=== PATIENT | male | born 1980 | race Caucasian/White ===

== ENCOUNTER 2020-04-22 09:14 | Emergency (ER) | payer OTHER, SELFPAY ==
--- NOTE | ~2020-04-22 | XR_ITS ---
EXAMINATION: XR chest 1V portable EXAM DATE: 04/22/2020 10:02 INDICATION: Shortness of breath. TECHNIQUE: Portable AP frontal chest x-ray was obtained. There is no prior study for comparison. FINDINGS: Mild hyperinflation. The lungs are clear. There are no pleural effusions. The cardiomedia stinal silhouette is within normal limits. There is no pneumothorax suspected. The bones and soft t issues are unremarkable. IMPRESSION: Mild hyperinflation. Reviewed, dictated and finalized at location B. 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
[2020-04-22 09:28] VITALS: BP 157/103; PULSE 106; RESP 13; TEMP 36.4; O2SAT 98
[2020-04-22 09:45] LABS: Basophils Percent Auto 0.5 % (0.2-1.2); Eosinophils Absolute Auto 0.1 K/mm3 (0-0.3); Eosinophils Percent Auto 0.9 % (0-4.4); Hematocrit 58.4 % (42.0-52.0); Hemoglobin 20.9 g/dL (14.0-18.0); Immature Granulocyte Absolute 0.03 K/mm3 (0.00-0.031); Immature Granulocyte Percent A 0.4 % (0-0.5); Lymphocytes Absolute Auto 1.84 K/mm3 (0.9-3.2); Lymphocytes Percent Auto 23.4 % (18.3-44.2); Mean Corpuscular HGB Conc 35.8 g/dl (32-36); Mean Corpuscular Volume 103.4 fl (80-100); Mean Platelet Volume 10.1 fl (7.4-10.4); Monocytes Absolute Auto 0.6 K/mm3 (0.1-0.6); Monocytes Percent Auto 7.4 % (2.6-8.5); Neutrophils Absolute Auto 5.3 K/mm3 (1.3-6.7); Neutrophils Percent Auto 67.4 % (45.5-73.1); Platelet Count Result 225 k/mm3 (150-375); Red Blood Count 5.65 M/mm3 (4.6-6.20); Red Cell Distribution Width 15.9 % (11.5-14.5); White Blood Count 7.9 K/mm3 (4.5-10.0)
[2020-04-22] MEDS: SODIUM CHLORIDE 0.9% IV 1,000 ML 999 ML IV CONT (09:49)
[2020-04-22] MEDS: ONDANSETRON INJ 4 MG/2 ML VIAL IV PUSH (09:49)
[2020-04-22 09:58] LABS: Lactic Acid Reflex 2.4 mmol/L (0.7-2.1)
[2020-04-22 09:59] LABS: Alanine Aminotransferase 47 U/L (4-50); Albumin Level 4.8 g/dL (3.5-5.1); Alkaline Phosphatase 82 U/L (38-126); Anion Gap 11 mmol/L (8-16); Aspartate Amino Transferase 56 U/L (17-59); Bilirubin,Total 1.3 mg/dL (0.2-1.3); Blood Urea Nitrogen 12 mg/dL (9-20); Calcium 9.7 mg/dL (8.4-10.2); Carbon Dioxide 27 mmol/L (22-30); Chloride 102 mmol/L (98-107); Estimated CRCL calculation 102 ml/min; Estimated Glomerular Filt Rate > 60; Glucose 130 mg/dL (75-110); Potassium 3.4 mmol/L (3.4-5.0); Sodium 140 mmol/L (137-145)
[2020-04-22 11:01] LABS: Add Urine Microscopic? YES; Appearance Urine Clear (Clear); Bacteria Urine Trace /hpf; Bilirubin Urine Negative (Negative); Blood Urine Negative (Negative); Color Urine Yellow (Yellow); Glucose Urine UA Negative (Negative); Ketones Urine Negative (Negative); Leukocyte Esterase Ur Negative LEU/UL (Negative); Mucus Urine Heavy /lpf; Nitrate Urine Negative (Negative); Protein Urine 2+ mg/dL (Negative); Specific Grav Ur 1.025 (1.001-1.035); WBC Urine 0-3 /hpf
[2020-04-22] MEDS: SODIUM CHLORIDE 0.9% IV 1,000 ML 150 ML IV CONT (11:42)
[2020-04-22 12:44] LABS: Reflex Lactic Acid Yes or No Add Lactic
[2020-04-22 13:11] LABS: Lactic Acid 0.7 mmol/L (0.7-2.1)
--- NOTE | 2020-04-22 14:16 | ED.GENADULT ---
HPI - General Adult General Chief complaint: Nausea/Vomiting/Diarrhea Stated complaint: vomiting Time Seen by Provider: 04/22/20 09:23 Source: patient Mode of arrival: ambulatory Limitations: no limitations History of Present Illness HPI narrative: 40-year-old with no major medical problems here with complaints of nausea, vomiting, diarrhea for past few days. Patient states that he had Covid -like symptoms approximately 10 days ago however symptoms are getting gradually worse. He denies any fever or chills at this time . No cough or shortness of breath at this time. Onset (ago): day(s) (10) Severity: moderate Associated symptoms: nausea/vomiting Related Data Home Medications Medication Instructions Recorded Confirmed No Home Medications 04/22/20 04/22/20 Allergies Allergy/AdvReac Type Severity Reaction Status Date / Time No Known Allergies Allergy Verified 04/22/20 09:51 Review of Systems Review of Systems: All systems reviewed & are unremarkable except as noted in HPI and below Constitutional: Constitutional: Reports as per HPI Eyes: Eyes: Reports as per HPI Cardiovascular: Cardiovascular: Reports as per HPI Respiratory: Respiratory: Reports no additional respiratory complaints Gastrointestinal: Gastrointestinal: Reports as per HPI Musculoskeletal: Musculoskeletal: Reports no additional musculoskeletal complaints PMFSH Social History Social History Gender identity (if verbalized by the patient): Male Exam Narrative: Exam Narrative: GENERAL: Well-appearing, well-nourished, and in no acute distress. HEAD: Normocephalic, atraumatic. EYES: PERRLA and EOMI.. NECK: Supple. CHEST: Clear to auscultation. No respiratory distress. HEART: Regular rate and rhythm. No murmur heard. Normal peripheral pulses. ABDOMEN: Soft, nontender, nondistended, normal active bowel sounds. EXTREMITIES: Normal range of motion. No edema. SKIN: Warm, dry, no rash. NEURO: No focal deficits. Alert and oriented x3. PSYCH: Normal mood and affect. Course Course Emergency Course: Inform patient about his lab work. Patient states he is feeling slightly better after IV infusion. Advised him to still remain quarantined until we get the results. We will discharge him home with Zofran. Vital Signs Vital signs: Vital Signs Temperature 36.4 C L 04/22/20 09:28 Pulse Rate 106 H 04/22/20 09:28 Respiratory Rate 13 04/22/20 09:28 Blood Pressure 157/103 H 04/22/20 09:28 Pulse Oximetry 98 04/22/20 09:28 Temperature 36.4 C L 04/22/20 09:28 Pulse Rate 106 H 04/22/20 09:28 Respiratory Rate 13 04/22/20 09:28 Blood Pressure 157/103 H 04/22/20 09:28 Pulse Oximetry 98 04/22/20 09:28 Medical Decision Making Vital Signs Vital Signs: Vital Signs Temperature 36.4 C L 04/22/20 09:28 Pulse Rate 106 H 04/22/20 09:28 Respiratory Rate 13 04/22/20 09:28 Blood Pressure 157/103 H 04/22/20 09:28 Pulse Oximetry 98 04/22/20 09:28 Temperature 36.4 C L 04/22/20 09:28 Pulse Rate 106 H 04/22/20 09:28 Respiratory Rate 13 04/22/20 09:28 Blood Pressure 157/103 H 04/22/20 09:28 Pulse Oximetry 98 04/22/20 09:28 Lab Data Result diagrams: 04/22/20 09:36 04/22/20 09:36 Labs: Lab Results 04/22/20 04/22/20 04/22/20 Range/Units 09:36 09:36 09:36 WBC 7.9 (4.5-10.0) K/mm3 RBC 5.65 (4.6-6.20) M/mm3 Hgb 20.9 H (14.0-18.0) g/dL Hct 58.4 H (42.0-52.0) % MCV 103.4 H (80-100) fl MCH 37.0 H (26-34) pg MCHC 35.8 (32-36) g/dl RDW 15.9 H (11.5-14.5) % Plt Count 225 (150-375) k/mm3 MPV 10.1 (7.4-10.4) fl Immature Gran % (Auto) 0.4 (0-0.5) % Neut % (Auto) 67.4 (45.5-73.1) % Lymph % (Auto) 23.4 (18.3-44.2) % [place] % (Auto) 7.4 (2.6-8.5) % Eos % (Auto) 0.9 (0-4.4) % Baso % (Auto) 0.5 (0.2-1.2) % Lymph # (Auto) 1.84 (0.9-3.2) K/mm3 M
[2020-04-23 01:59] LABS: SARS-CoV-2 RNA PCR Negative
== END 2020-04-22 14:31 | disposition home or self-care (01) ==
PROVIDERS: Emergency Provider Family Medicine
DX: K52.9 Noninfective gastroenteritis and colitis, unspecified (principal); Z20.828 Contact with and (suspected) exposure to other viral communicable diseases
CPT/HCPCS: 36415; 71045; 80053; 81001; 83605; 85025; 87635; 96361; 96374; 99284; C9803; J2405; J7030; U0003